=== PATIENT | female | born 1995 | race Caucasian/White ===

== ENCOUNTER 2018-04-11 13:25 | Emergency (ER) | payer BC ==
--- OUTSIDE RECORDS SUMMARY | 2018-04-11 13:33 | XMS REPORT | Continuity of Care Document ---
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 Laboratory test finding 07/01/2017 [facility] LDH 122 U/L N 84-246 134 [place] [address] [phone] Iron-Tibc-%Sat 07/01/2017 [facility] Serum Iron 62 g/dL N 50-170 134 [place] [address] [phone] Total Iron Binding Capacity 325 g/dL N 250-450 Transferrin %Saturation 19 % N 12-57 Laboratory test 07/01/2017 [facility] Factor VIII 69 % 57-163 [address] [place] [address] [phone] Ferritin 10 ng/mL N 8-252 Comprehensive Metabolic 07/01/2017 [facility] Glucose 86 mg/dL N 74-106 Panel [address] [place] [address] [phone] BUN 8 mg/dL N 7-18 Creatinine 0.7 mg/dL N 0.6-1.3 Glom Filtration Rate, Estimate >60 mL/min >60 If >60 mL/min >60 19 BUN/Creat 11.4 ratio Sodium 143 mmol/L N 136-145 Potassium 3.7 mmol/L N 3.5-5.1 Chloride 111 mmol/L High 98-107 Carbon Dioxide 26 mmol/L N 21-32 Anion Gap 6 mEq/L Low 8-16 Calcium 8.4 mg/dL Low 8.5-10.1 Total Protein 6.3 g/dL Low 6.4-8.2 Albumin 3.7 g/dL N 3.4-5.0 Globulin 2.6 g/dL N 1.9-4.3 Alb/Glob 1.4 ratio Bilirubin,Total 0.3 mg/dL N 0.2-1.0 Sgot/Ast 15 U/L N 15-37 SGPT/Alt 18 U/L N 12-78 Alkaline Phosphatase 52 U/L N 45-117 CBS W/Automated Diff 07/01/2017 [facility] White Blood 4.7 K/uL N 3.1-10.[address] Count [place], [place] [id number] [phone] Red Blood Count 4.69 M/uL N 3.90-5.40 Hemoglobin 14.1 gm/dL N 11.6-15.8 Hematocrit 41.1 % N 36.0-46.1 Mean Cell Volume 87.6 fl N 80.9-99.0 Mean Corpuscular HGB 30.1 pg N 25.9-32.7 Mean Corpuscular HGB Conc 34.3 g/dL N 30.8-34.3 Platelet Count 242 K/uL N 155-360 Red Cell Distri Width SD 40.7 fl N 3-47 Red Cell Distri Width %CV 12.9 % N 11.7-14.4 Mean Platelet Volume 9.9 fL N 8.9-12.4 Neut% 52.2 % N 40.4-72.8 Lymph % 34.3 % N 20.0-42.0 Stearns % 8.4 % N 4.3-13.2 Eo% 4.5 % N 0.0-6.6 Bas% 0.6 % N 0.0-1.1 Neut# 2.43 K/uL N 1.8-7.0 Lymph # 1.60 K/uL N 1.0-4.0 Stearns # 0.39 K/uL N 0.3-0.9 Eos # 0.21 K/uL N 0.0-0.5 Baso # 0.03 K/uL N 0.0-0.1 Anticoagulant Therapy? Unknown Xray 04/07/2017 [facility] - Radiology Ultrasound, <pending> [address] [place] [address] Transvaginal [phone] (Non-OB) Bacteria 04/06/2017 N2N/CCD Import Bacteria Very Few None Seen detection in detection in urine sediment urine sediment by light micr by light microscopy Ua RFX Micro & 04/06/2017 [facility] Urine Color YELLOW Yellow 20 Culture II [address] [place] [address] [phone] Urine Clarity CLEAR Clear Urine Glucose - Dipstick NEGATIVE mg/dL Negative Urine Bilirubin - Dipstick NEGATIVE Negative Urine Ketone NEGATIVE mg/dL Negative Urine Specific [place] 1.010 N 1.010-1.030 Urine Blood LARGE Abnormal Negative Urine PH 6.5 N 6.5-7.5 Urine Protein - Dipstick NEGATIVE mg/dL Negative Urine Urobilinogen - Dipstick 0.2 E.U./dL N 0.2-1.0 Urine Nitrite - Dipstick NEGATIVE Negative Urine Leuk Esterase NEGATIVE Negative Urine RBC 2-5 rbc/hpf 0-2 Urine WBC NONE SEEN wbc/hpf 0-7 Urine Epithelial Cells NONE SEEN /lpf None Seen Urine Bacteria VERY FEW None Seen Source: URINE, CLEAN CAT <SEE NOTE> 21 Urine HCG 04/06/2017 [facility] Urine HCG NEGATIVE Negative 22 (Qualitative) [address] [facility] (Qualitative) [place] [address] [phone] Source: URINE, CLEAN CAT <SEE NOTE> 23 WBC # Bld Auto 04/06/2017 N2N/CCD Import WBC # Bld Auto 8.6 3.1-10.7 Serum sodium 04/06/2017 N2N/CCD Import Serum sodium 144 136-145 measurement measurement Serum or plasma 04/06/2017 N2N/CCD Import Serum or plasma 9 7-18 urea nitrogen urea nitrogen measurement measurement (mass/vo (mass/volume) Serum or plasma 04/06/2017 N2N/CCD Import Serum or plasma 0.2 0.2-1.0 total bilirubin total bilirubin measurement (mass/ measurement (mass/volume) Serum or plasma 04/06/2017 N2N/CCD Import Serum or plasma 6.1 Low 6.4- 8.2 protein measurement protein (mass/volume) measurement (mass/volume) Serum or plasma 04/06/2017 N2N/CCD Import Serum or plasma 94 74-106 glucose measurement glucose (mass/volume) measurement (mass/volume) Serum or plasma 04/06/2017 N2N/CCD Import Serum or plasma 0.8 0.6-1.3 creatinine creatinine measurement measurement (mass/volum (mass/volume) Serum or plasma 04/06/2017 N2N/CCD Import Serum or plasma 8.5 8.5-10.1 calcium measurement calcium (mass/volume) measurement (mass/volume) Serum or plasma 04/06/2017 N2N/CCD Import Serum or plasma 13 Low 15-37 aspartate aspartate aminotransferase aminotransferase measure measurement (enzymatic activity/volume) Serum or plasma 04/06/2017 N2N/CCD Import Serum or plasma 66 45-117 alkaline alkaline phosphatase phosphatase measurement ( measurement (enzymatic activity/volume) Serum or plasma 04/06/2017 N2N/CCD Import Serum or plasma 3.7 3.4-5.0 albumin measurement albumin (mass/volume) measurement (mass/volume) Color Ur 04/06/2017 N2N/CCD Import Color Ur Yellow Yellow Epithelial cells 04/06/2017 N2N/CCD Import Epithelial cells None Seen None Seen detection in urine detection in urine sediment by li sediment by light microscopy Ketones Ur 04/06/2017 N2N/CCD Import Ketones Ur Negative Negative Strip.auto-mCnc Strip.auto-mCnc Leukocyte esterase 04/06/2017 N2N/CCD Import Leukocyte esterase Negative Negative Ur Ql Strip.auto Ur Ql Strip.auto Nitrite Ur Ql 04/06/2017 N2N/CCD Import Nitrite Ur Ql Negative Negative Strip.auto Strip.auto Prot Ur 04/06/2017 N2N/CCD Import Prot Ur Negative Negative Strip.auto-mCnc Strip.auto-mCnc Specific gravity of 04/06/2017 N2N/CCD Import Specific gravity 1.010 1.010-1.03 Urine by Automated of Urine by 0 test strip Automated test strip Urine appearance 04/06/2017 N2N/CCD Import Urine appearance Clear Clear determination determination Urine glucose 04/06/2017 N2N/CCD Import Urine glucose Negative Negative measurement by measurement by automated test automated test strip strip (mass/volume) Urine hemoglobin 04/06/2017 N2N/CCD Import Urine hemoglobin Large High Negative detection by detection by automated test automated test strip strip Urine human 04/06/2017 N2N/CCD Import Urine human Negative Negative chorionic chorionic gonadotropin (hCG) gonadotropin (hCG) detection detection Urine sediment 04/06/2017 N2N/CCD Import Urine sediment None Seen 0-7 leukocyte count by leukocyte count by microscopy (numb microscopy (number/high power field) Urine total 04/06/2017 N2N/CCD Import Urine total Negative Negative bilirubin detection bilirubin by automated test detection by automated test strip Urobilinogen Ur 04/06/2017 N2N/CCD Import Urobilinogen Ur 0.2 0.2-1.0 Strip-aCnc Strip-aCnc pH Ur Strip.auto 04/06/2017 N2N/CCD Import pH Ur Strip.auto 6.5 6.5-7.5 CBS W/Automated 04/06/2017 [facility] White Blood Count 8.6 K/uL N 3.1-10.7 Diff [address] [place] [address] [phone] Red Blood Count 4.45 M/uL N 3.90-5.40 Hemoglobin 13.7 gm/dL N 11.6-15.8 Hematocrit 39.2 % N 36.0-46.1 Mean Cell Volume 88.1 fl N 80.9-99.0 Mean Corpuscular HGB 30.8 pg N 25.9-32.7 Mean Corpuscular HGB Conc 34.9 g/dL High 30.8-34.3 Platelet Count 231 K/uL N 155-360 Red Cell Distri Width SD 39.5 fl N 3-47 Red Cell Distri Width %CV 12.5 % N 11.7-14.4 Mean Platelet Volume 9.7 fL N 8.9-12.4 Neut% 54.3 % N 40.4-72.8 Lymph % 33.1 % N 20.0-42.0 Stearns % 5.2 % N 4.3-13.2 Eo% 6.8 % High 0.0-6.6 Bas% 0.6 % N 0.0-1.1 Neut# 4.66 K/uL N 1.8-7.0 Lymph # 2.84 K/uL N 1.0-4.0 Stearns # 0.45 K/uL N 0.3-0.9 Eos # 0.58 K/uL High 0.0-0.5 Baso # 0.05 K/uL N 0.0-0.1 Comprehensive Metabolic 04/06/2017 [facility] Glucose 94 mg/dL N 74-[address] [place], [place] [address] [phone] BUN 9 mg/dL N 7-18 Creatinine 0.8 mg/dL N 0.6-1.3 Glom Filtration Rate, Estimate >60 mL/min >60 If >60 mL/min >60 24 BUN/Creat 11.2 ratio Sodium 144 mmol/L N 136-145 Potassium 3.5 mmol/L N 3.5-5.1 Chloride 112 mmol/L High 98-107 Carbon Dioxide 27 mmol/L N 21-32 Anion Gap 5 mEq/L Low 8-16 Calcium 8.5 mg/dL N 8.5-10.1 Total Protein 6.1 g/dL Low 6.4-8.2 Albumin 3.7 g/dL N 3.4-5.0 Globulin 2.4 g/dL N 1.9-4.3 Alb/Glob 1.5 ratio Bilirubin,Total 0.2 mg/dL N 0.2-1.0 Sgot/Ast 13 U/L Low 15-37 25 SGPT/Alt 22 U/L N 12-78 Alkaline Phosphatase 66 U/L N 45-117 Laboratory test 04/06/2017 [facility] HCG, Quant < 1.0 [address] mIU/[place] [address] [phone] Alt SerPl-cCnc 04/06/2017 N2N/CCD Import Alt SerPl-cCnc 22 12-78 Albumin/Glob 04/06/2017 N2N/CCD Import Albumin/Glob 1.5 SerPl SerPl Anion Gap 04/06/2017 N2N/CCD Import Anion Gap 5 Low 8-16 SerPl-sCnc SerPl-sCnc Automated blood 04/06/2017 N2N/CCD Import Automated blood 0.05 0.0-0.1 basophil count basophil count (count/volume) (count/volume) Automated blood 04/06/2017 N2N/CCD Import Automated blood 0.58 High 0.0- 0.5 eosinophil eosinophil count count Automated blood 04/06/2017 N2N/CCD Import Automated blood 39.2 36.0- 46.1 hematocrit hematocrit (volume (volume fraction) fraction) Automated blood 04/06/2017 N2N/CCD Import Automated blood 2.84 1.0-4.0 lymphocyte lymphocyte count count (number/volume) (number/volume) Automated blood 04/06/2017 N2N/CCD Import Automated blood 231 155-360 platelet count platelet count Automated blood 04/06/2017 N2N/CCD Import Automated blood 9.7 8.9-12.4 platelet mean platelet mean volume volume measurement measurement Automated 04/06/2017 N2N/CCD Import Automated 30.8 25.9-32.7 erythrocyte erythrocyte mean mean corpuscular corpuscular hemoglobin hemoglobin (mass per erythrocyte) Automated 04/06/2017 N2N/CCD Import Automated 34.9 High 30.8-34.3 erythrocyte erythrocyte mean mean corpuscular corpuscular hemoglobin hemoglobin concentration measurement (mass/volume) Automated 04/06/2017 N2N/CCD Import Automated 88.1 80.9-99.0 erythrocyte erythrocyte mean mean corpuscular corpuscular volume volume RDW RBC 04/06/2017 N2N/CCD Import RDW RBC 12.5 11.7-14.4 Auto-Rto Auto-Rto Serum carbon 04/06/2017 N2N/CCD Import Serum carbon 27 21-32 dioxide dioxide measurement measurement RDW RBC Auto 04/06/2017 N2N/CCD Import RDW RBC Auto 39.5 3-47 Potassium 04/06/2017 N2N/CCD Import Potassium 3.5 3.5-5.1 SerPl-sCnc SerPl-sCnc Neutrophils/hoang 04/06/2017 N2N/CCD Import Neutrophils/hoang 54.3 40.4- 72.8 k NFr Bld Auto k NFr Bld Auto Neutrophils # 04/06/2017 N2N/CCD Import Neutrophils # 4.66 1.8-7.0 Bld Auto Bld Auto Monocytes/leuk 04/06/2017 N2N/CCD Import Monocytes/leuk 5.2 4.3-13.2 NFr Bld Auto NFr Bld Auto Lymphocytes/hoang 04/06/2017 N2N/CCD Import Lymphocytes/hoang 33.1 20.0- 42.0 k NFr Bld Auto k NFr Bld Auto Globulin Ser 04/06/2017 N2N/CCD Import Globulin Ser 2.4 1.9-4.3 Calc-mCnc Calc-mCnc Eosinophil/leuk 04/06/2017 N2N/CCD Import Eosinophil/leuk 6.8 High 0.0- 6.6 NFr Bld Auto NFr Bld Auto Chloride 04/06/2017 N2N/CCD Import Chloride 112 High 98-107 SerPl-sCnc SerPl-sCnc Blood monocytes 04/06/2017 N2N/CCD Import Blood monocytes 0.45 0.3-0.9 automated count automated count (number/volume) (number/volume) Blood 04/06/2017 N2N/CCD Import Blood 13.7 11.6-15.8 hemoglobin hemoglobin measurement measurement (mass/volume) (mass/volume) Blood 04/06/2017 N2N/CCD Import Blood 4.45 3.90-5.40 erythrocytes erythrocytes automated count automated count (number/volume) (number/volume) Basophils/leuk 04/06/2017 N2N/CCD Import Basophils/leuk 0.6 0.0-1.1 NFr Bld Auto NFr Bld Auto BUN/Creat SerPl 04/06/2017 N2N/CCD Import BUN/Creat SerPl 11.2 Laboratory test 03/27/2015 [facility] Urine HCG NEGATIVE Negative [address] (Qualitative) [place] [address] [phone] GC/CT 08/02/2014 [facility] (DO Not Use) Chlamydia NEGATIVE 28 GC NEGATIVE Laboratory test 08/02/2014 [facility] (DO Not Use) Cytology Pap See Note N 29 finding Comp Metabolic Panel 12/16/2013 N2N/CCD Import Albumin 4.3 g/dL 3.2-5.2 Albumin/Globulin Ratio 2.3 1-3 Alkaline Phosphatase 37 U/L 34-104 Alt 7 U/L 7-52 Anion Gap 4 mmol/L 2-11 Ast 13 U/L 13-39 BUN/Creatinine Ratio 10.7 8-20 Blood Urea Nitrogen 9 mg/dL 6-24 Calcium 9.5 mg/dL 8.6-10.3 Chloride 106 mmol/L 101-111 Co2 Carbon Dioxide 28 mmol/L 22-32 Creatinine 0.84 mg/dL 0.51-0.95 Egfr 111.2 >60 30 Egfr Non- 86.4 >60 Globulin 1.9 g/dL Low 2-4 Glucose 89 mg/dL 70-100 Potassium 4.0 mmol/L 3.7-5.6 Sodium 138 mmol/L 133-145 Total Bilirubin 0.40 mg/dL 0.2-1.0 Total Protein 6.2 g/dL Low 6.4-8.9 Urine Culture And 12/16/2013 N2N/CCD Import Urine Culture (See Note) 31 Sensitivities CBC Auto Diff 12/16/2013 N2N/CCD Import Abs Basophils 0.1 10^3/uL 0-0.2 Abs Eosinophils 0.5 10^3/uL 0-0.6 Abs Lymphocytes 3.3 10^3/uL 1.0-4.8 Abs Monocytes 0.5 10^3/uL 0-0.8 Abs Neutrophils 5.4 10^3/uL 1.5-7.7 Abs Nucleated RBC 0.01 10^3/uL Basophil % 0.7 % 0-2 Eosinophil % 5.3 % 0-6 Granulocyte % 55.5 % 38-83 Hematocrit 38 % 35-47 Hemoglobin 13.3 g/dL 12.0-16.0 Lymphocyte % 33.9 % 25-47 Mean Corpuscular HGB Conc 35 g/dL 31-36 Mean Corpuscular Hemoglobin 30 pg 27-31 Mean Corpuscular Volume 86 fL 80-97 Mean Platelet Volume 8 um3 7.4-10.4 Monocyte % 4.6 % 1-9 Nucleated Red Blood Cells % 0.1 Platelet Count 214 10^3/uL 150-450 Red Blood Count 4.48 10^6/uL 4.0-5.4 Red Cell Distribution Width 14 % 10.5-15 White Blood Count 9.8 10^3/uL 4.8-10.8 Laboratory test 12/16/2013 N2N/CCD Import Lipase 6 U/L Low 11.0-82.0 finding Laboratory test 12/12/2013 N2N/CCD Import C-Reactive < 2.9 mg/L <3.0 finding Protein,Quant Sedimentation Rate 1 mm/hr 0-20 CBC W/Automated Diff 12/12/2013 N2N/CCD Import Bas% 0.7 % 0.0-1.1 Baso # 0.06 K/uL 0.0-0.1 Eo% 10.8 % High 0.0-6.6 Eos # 0.87 K/uL High 0.0-0.5 Hematocrit 41.0 % 36.0-46.1 Hemoglobin 14.1 gm/dL 11.6-15.8 Lymph # 2.74 K/uL 0.8-3.4 Lymph % 33.9 % 17.0-46.1 Mean Cell Volume 87.0 fl 80.9-99.0 Mean Corpuscular HGB 29.9 pg 25.9-32.7 Mean Corpuscular HGB Conc 34.4 g/dL High 30.8-34.3 Mean Platelet Volume 9.7 fL 8.9-12.4 Stearns # 0.53 K/uL 0.0-0.6 Stearns % 6.6 % 4.3-13.2 Neut# 3.88 K/uL 1.0-7.0 Neut% 48.0 % 28.0-68.0 Platelet Count 235 K/uL 155-360 Red Blood Count 4.71 M/uL 3.90-5.40 Red Cell Distri Width %CV 13.8 % 11.7-14.4 Red Cell Distri Width SD 43.2 fl 3-47 White Blood Count 8.1 K/uL 3.1-10.7 1 HIGH BP 184/110, TIRED, DESAI 2 FIRST MORNING SPECIMENS GENERALLY CONTAIN THE HIGHEST CONCENTRATION OF HCG AND ARE RECOMMENDED FOR EARLY DETECTION OF . Method: Quidel QuickVue One-Step Immunoassay 3 URINE, CLEAN CATCH 4 URINE, CLEAN CATCH 5 URINE SPECIMENS ARE SCREENED AT THE LISTED CUTOFFS DRUG CLASS INITIAL TEST LEVEL Amphetamines 1000 ng/mL Barbiturates 200 ng/mL Benzodiazepines 200 ng/mL Cannabinoids 50 ng/mL Cocaine Metabolite 300 ng/mL Methadone 300 ng/mL Opiates 300 ng/mL Any PRESUMPTIVE POSITIVE findings are UNCONFIRMED. Confirmatory testing is suggested if findings are unexpected. Please contact laboratory if confirmatory testing is desired. SPECIMENS ARE HELD FOR 72 HOURS. 6 Note: Persistent reduction for 3 months or more in an eGFR <60 mL/min/1.73 m2 defines CKD. Patients with eGFR values >/=60 mL/min/1.73 m2 may also have CKD if evidence of persistent proteinuria is present. The original MDRD equation for estimated GFR is not valid for patients less than 18 years of age. Additional information may be found at www.kdoqi.org. 7 Values below the stated reference ranges of AST and ALT can be seen in normal populations. Clinical correlation is suggested. 8 D69.1 9 D64.9 10 Prolonged ADP closure pattern suggesting impairment of primary hemostasis (typically platelets or vWF). A prolonged closure time can also be seen when the patient has a hematocrit <35% and/or a platelet count <150,000 k/ul. Testing Performed By: [facility], [place] [address] 11 FAX [phone] [id number] Stability Limit Exceeded When Received 13 Stability Limit Exceeded When Received 14 Stability Limit Exceeded When Received 15 D64.9 16 Performed at: [facility] [address] [id number] Hide Puller: Edi Salcedo MD, Phone: [phone] 17 THERAPEUTIC INR RANGE: 2.0 - 3.0 DVT, Pulmonary embolus, prophylaxis against venous thrombosis or systemic embolization in high risk patients. 2.5 - 3.5 Mechanical heart valves 18 Performed at: [facility] [address] [id number] Hide Puller: Edi Salcedo MD, Phone: [phone] 19 Note: Persistent reduction for 3 months or more in an eGFR <60 mL/min/1.73 m2 defines CKD. Patients with eGFR values >/=60 mL/min/1.73 m2 may also have CKD if evidence of persistent proteinuria is present. The original MDRD equation for estimated GFR is not valid for patients less than 18 years of age. Additional information may be found at www.kdoqi.org. 20 VAGINAL BLEEDING 21 URINE, CLEAN CATCH 22 FIRST MORNING SPECIMENS GENERALLY CONTAIN THE HIGHEST CONCENTRATION OF HCG AND ARE RECOMMENDED FOR EARLY DETECTION OF . Method: Quidel QuickVue One-Step Immunoassay 23 URINE, CLEAN CATCH 24 Note: Persistent reduction for 3 months or more in an eGFR <60 mL/min/1.73 m2 defines CKD. Patients with eGFR values >/=60 mL/min/1.73 m2 may also have CKD if evidence of persistent proteinuria is present. The original MDRD equation for estimated GFR is not valid for patients less than 18 years of age. Additional information may be found at www.kdoqi.org. 25 Values below the stated reference ranges of AST and ALT can be seen in normal populations. Clinical correlation is suggested. 26 Approximate Gestational Age and Total BHCG Range: 0.2 - 1 Week........................5-50 mIU/mL 1 - 2 Weeks.....................50-500 mIU/mL 2 - 3 Weeks..................100-5,000 mIU/mL 3 - 4 Weeks.................500-10,000 mIU/mL 4 - 5 Weeks...............1,000-50,000 mIU/mL 5 - 6 Weeks.............10,000-100,000 mIU/mL 6 - 8 Weeks.............15,000-200,000 mIU/mL 2 - 3 Months............10,000-100,000 mIU/mL 27 FIRST MORNING SPECIMENS GENERALLY CONTAIN THE HIGHEST CONCENTRATION OF HCG AND ARE RECOMMENDED FOR EARLY DETECTION OF . 28 Special Testing Laboratory [address] [place] [address], [facility] [address] [place] [address] STI REPORT Name: Laura Velásquez : 1995 (Age: 19) Sex: F Location: [facility] Requisition #: [id number] Date Collected: 08/02/2014 Billing #: [id number] Date Received: 08/03/2014 Physician(s ): URBAN RIVERA [facility] Specimen(s) Received: ThinPrep, APTIMA Date Ordered: 08/03/2014 Status: Signed Out Date Reported: 08/04/2014 Chlamydia trachomatis NEGATIVE Electronic Signature Maryam Moe [facility] Date Ordered: 08/03/2014 Status: Signed Out Date Reported: 08/04/2014 Neisseria gonorrhoeae NEGATIVE Electronic Signature Maryam Moe [facility] ICD-9 Codes: V76.2 29 Interpretation: NEGATIVE FOR INTRAEPITHELIAL LESION OR MALIGNANCY. Specimen Adequacy: SATISFACTORY FOR EVALUATION. Additional Findings: ENDOCERVICAL/TRANSFORMATION ZONE PRESENT. Cytology Laboratory [address] [facility], [address] [place] [id number] CYTOLOGY REPORT Name: Laura Velásquez : 1995 (Age: 19) Sex: F Location: [facility] Med. Rec. # [id number] Date Collected: 08/02/2014 Billing #: [id number] Date Received: 08/03/2014 Requisition # [id number] Physician(s): URBAN MARLEY Source of Specimen: ENDOCERVICAL/ECTOCERVICAL THIN PREP Clinical Information: Date of Last Menstrual Period: 07/10/14 kfs Electronic Signature CHENCHO Davis (ASCP) Reported: 08/08/2014 [facility] ICD-9 Code(s) V76.2 30 Because ethnic data is not always readily available, this report includes an eGFR for both -Americans and non- Americans. The National Kidney Disease Education Program (NKDEP) does not endorse the use of the MDRD equation for patients that are not between the ages of 18 and 70, are , have extremes of body size, muscle mass, or nutritional status, or are non- or non-. According to the National Kidney Foundation, irrespective of diagnosis, the stage of the disease is based on the level of kidney function: Stage Description GFR(mL/min/1.73 m(2)) 1 Kidney damage with normal or decreased GFR 90 2 Kidney damage with mild decrease in GFR 60- 89 3 Moderate decrease in GFR 30-59 4 Severe decrease in GFR 15-29 5 Kidney failure <15 (or dialysis) 31 RUN DATE: 12/19/13 [facility] LIVE PAGE 1 RUN TIME: [address] [place] [address] Specimen Inquiry ----- Name: LAURA VELÁSQUEZ : [address]: Ochoa Singleton MD Acct: [id number] Unit: [id number] AGE: 18 Location: [facility] Re12/16/13 SEX: F Status: DEP ER ----- SPEC: [id number] JANUARY: 12/16/[address]: Ochoa Singleton MD REQ: [id number] RECD: 12/17/13 STATUS: RAFA ROCA DR: Angela Williamson MD [facility] _ SOURCE: URINE SPDESC: ORDERED: Urine Culture ----- Procedure Result Verified Site ----- Urine Culture Final 12/19/13-0845 ML Organism 1 NORMAL SCOOTER [place] Count 75-100,000 (Many) CFU/ML ----- END OF REPORT * ML=Testing performed at Main Lab DEPARTMENT OF PATHOLOGY, [address] [place] [address] Ed Rodriguez M.D. Director [facility] # [id number] Procedures Date Code Description Status 01/02/2016 81680 EKG Interpretation And Report Only Completed 01/04/2014 26843 EKG-Tracing And Report Completed 06/25/2012 40183 Echocardiogram Complete Completed 06/15/2012 76479 EKG-Tracing And Report Completed 07/17/2011 98299 Anesthesia, Intraoral Surgery Not Otherwise Spec Completed 11/07/2010 70394 Anesthesia, Tympanotomy Completed Encounters Type Date Location Provider Dx Diagnosis Office Visit 02/01/2018 Primary Care Miguel, I10 Essential (primary) 10:30a Office STUART Trimble hypertension Office Visit 07/24/2017 Oncology Office Ben, 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 D64.9 Anemia, unspecified N92.0 Excessive and frequent menstruation with regular cycle Office Visit 07/01/2017 9:00a Oncology Office Ben D64.9 Anemia, Abad, DO unspecified N92.0 Excessive and frequent menstruation with regular cycle 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 Office Visit 12/11/2016 10:00a Primary Care Miguel, M62.830 Muscle spasm of Office [facility] Visit 08/26/2016 11:30a Primary Care Miguel J01.90 Acute sinusitis, Office [facility] unspecified R05 Cough R41.840 Attention and concentration deficit Office Visit 08/05/2016 1:00p Primary Care Miguel Z00.01 Encounter for Office [facility] general adult medical exam w abnormal findings R41.840 Attention and concentration deficit K59.00 Constipation, unspecified F43.10 Post-traumatic stress disorder, unspecified F33.8 Other recurrent depressive disorders Office Visit 04/10/2015 9:45a Primary Care Miguel, J01.90 Acute sinusitis, Office [facility] unspecified H10.9 Unspecified conjunctivitis Office Visit 08/02/2014 2:00p Family [place], 309.81 Posttraumatic Medicine [facility] Stress Disorder RD V72.31 Routine Sat Instructor Examination V76.2 Screening Malignant Neoplasm Cervix 309.81 Posttraumatic Stress Disorder Office Visit 01/04/2014 3:40p Cardiology Office Arun Estevez 780.2 Syncope & M., M.D., FACC Collapse 786.50 Pain Chest Unspec 786.05 Shortness Of Breath Office Visit 06/07/2013 Cardiology Office Josy Smith 780.2 Syncope & Collapse 3:40p Andria MSN, ANAESTHETIC TECHNICIAN Office Visit 04/15/2013 Orthopaedic Janice Ventura 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 Office S., RPAC Patella 719.46 Pain Joint Lower Leg Office Visit 03/11/2013 Orthopaedic Audrey 717.7 Chondromalacia Of 8:15a Office Janice S., Patella RPAC 719.46 Pain Joint Lower Leg Office Visit 12/08/2012 3:40p Cardiology Office Arun Estevez 780.2 Syncope & M., M.D., FACC Collapse Office Visit 08/24/2012 3:40p Cardiology Office Josy Smith 780.2 Syncope & Andria, MSN, Collapse ANAESTHETIC TECHNICIAN 786.50 Pain Chest Unspec Office Visit 08/03/2012 3:30p Cardiology Office Arun Estevez 780.2 Syncope & M., M.D., FACC Collapse 786.50 Pain Chest Unspec Office Visit 07/20/2012 3:30p Cardiology Office Josy Smith 780.2 Syncope & Andria, MSN, Collapse ANAESTHETIC TECHNICIAN Office Visit 06/15/2012 2:40p Cardiology Office Arun Estevez 780.2 Syncope & M., M.D., FACC Collapse 786.50 Pain Chest Unspec 794.31 Electrocardiogram (ECG) (EKG) Abnormal Plan of Treatment 03/12/2018 - [place], [place], [id number] Essential (primary) hypertensionComments :Current medication(s): Verapamil ER 120mg dailyFollow up:6 months.G43.009 Migraine without aura, not intractable, without status migrainosusComments: Often associated with menses. Hx of complicated migraine with visual disturbances 01/2016, has not recurred
--- OUTSIDE RECORDS SUMMARY | 2018-04-11 13:33 | XMS REPORT | Continuity of Care Document ---
:1995 External Reference #:[id number] Author Name Cally Flores Care Team Providers Name Role Phone Nai Rivera RPA Primary Care Physician Unavailable Payers Type Date Identification Numbers Payment Provider Subscriber Policy Number: [id number] BS Phil Velásquez PayID: [id number] [address] [address] ALEIDA Hernandez [address] Expires: 2018 Policy Number: [id number] Ltey Velásquez Group Number: [id number] [address] PayID: [id number] [place] [address] Advance Directives Description No Information Available Problems Date Description Provider Status Onset: 04/09/2016 Complicated migraine Mallory Marlow M.D. 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 Active without status migrainosus Family History Date Family Member(s) Problem(s) Comments General Stroke General Diabetes Mother No Current Problems Grandfather Stroke Paternal Grandfather Diabetes Social History Type Date Description Comments Sex Unknown Occupation Teacher Tobacco Use Start: Unknown End: Former Cigarette Smoker 1/2 Unknown Pack Daily Smoking Status Reviewed: 03/31/18 Former Cigarette Smoker 1/2 Pack Daily ETOH Use Occasionally consumes alcohol Tobacco Use Start: Unknown End: Patient is a former smoker Unknown Smoking was a very light smoker. Exercise Type/Frequency Exercises regularly Exercise Type/Frequency Used to do cardiac rehab 3 times a week Allergies, Adverse Reactions, Alerts Date Description Reaction Status Severity Comments 04/09/2016 NKDA Active 04/09/2016 Sensitivity To Narcotics Active Medications Medication Date Status Form Strength Qnty SIG Indications Ordering Provider Topiramate 03/31/ Active Tablets 25mg 60tabs 1 by G43.809 Ander 2019 mouth Larry Lam twice a day Verapamil HCL / Active Tablets ER 120mg 1 by Unknown ER 0000 mouth every day Verapamil HCL 02/09/ Hx Tablets 40mg 45tabs Take 2 G43.809 Mallory Stephens 2016 - Tablet Stackman, 03/30/ By Mouth M.D. 2018 Three Times A Day-take s 1 tab in A.M. and 1/2 tab in P.M. Verapamil HCL 08/08/ Hx Tablets 40mg 45tabs 1/2 tab G43.809 Mallory Stephens 2016 - by mouth Stackman, 02/09/ 3x/day M.D. 2016 Norethindrone / Hx Tablets 0.35mg Take One Unknown 0000 - Tablet 06/16/ By Mouth 2018 Every Day Trazodone HCL / Hx Tablets 100mg Take 1 Unknown 0000 - To 1 & 03/24 Tablets By Mouth AT Bedtime prn Docusate Sodium / Hx Capsules 100mg 3 by Unknown 0000 - mouth 03/30/ daily 2019 Buspirone HCL / Hx Tablets 5mg 60tabs 2 by Unknown 0000 - mouth in 03/30/ am and 2018 po at hs. Bupropion HCL / Hx Tablets ER 300mg 1 by Unknown ER (XL) 0000 - 24HR mouth 03/30/ 2018 day Immunizations Description No Information Available Vital Signs Date Vital Result Comment 03/31/2018 8:58am Height 66 inches 5'6" Weight 169.00 lb Heart Rate 66 /min BP Systolic Sitting 116 mmHg BP Diastolic Sitting 92 mmHg Respiratory Rate 16 /min Pain Level 0 O2 % BldC Oximetry 98 % BMI (Body Mass Index) 27.3 kg/m2 02/09/2017 11:13am Height 66 inches 5'6" Weight 156.00 lb Heart Rate 60 /min BP Systolic Sitting 116 mmHg BP Diastolic Sitting 66 mmHg Respiratory Rate 16 /min Pain Level 1 O2 % BldC Oximetry 99 % Ra BMI (Body Mass Index) 25.2 kg/m2 08/08/2016 3:54pm Height 66 inches 5'6" BP Systolic 72 mmHg BP Systolic Sitting 132 mmHg BP Diastolic Sitting 80 mmHg Respiratory Rate 16 /min Pain Level 0 O2 % BldC Oximetry 98 % 04/09/2016 10:59am Height 66 inches 5'6" Weight 156.00 lb Heart Rate 76 /min BP Systolic Sitting 124 mmHg BP Diastolic Sitting 80 mmHg Respiratory Rate 16 /min BMI (Body Mass Index) 25.2 kg/m2 Results Description No Information Available Procedures Description No Information Available Encounters Type Date Location Provider Dx Diagnosis Office Visit 02/09/2017 [place]/Jessica Stephens G43.809 Other migraine, 11:15a Neurologic Serv Of Larry Marlow not intractable, 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 at [facility] Neurologic [facility] Of [facility]03/31/2018 - Ander Lam M.D.G43.809 Other migraine, not intractable, without status migrainosusNew Medication:Topiramate 25 mg - 1 by mouth twice a dayNew Labs: (HCG) Urine, Ordered: Basic Metabolic Panel, Ordered: 03/31/18Follow up:Follow up in 4 monthsRecommendations:Call me in 2 months if no better and we will increase the dose Drink plenty of water Keep a headache calendar Call me 1 week after the angiogram to review the [id number] Other malformations of precerebral vesselsNew Xrays:Cta Head [id number] & Neck 33341 W/Contrast, Ordered: 03/31/18
[2018-04-11 13:40] VITALS: BP 136/77
--- NOTE | 2018-04-11 13:46 | UC ---
General HPI - HPI Summary HPI Summary: ROUSED WITH RED EYES AND DRAINAGE. BEGAN ON R AND NOW BOTH. NO PAIN. NO CONTACT USE. - History of Current Complaint Chief Complaint: UCEye Stated Complaint: BI LAT EYE CONCERN Time Seen by Provider: 04/11/18 13:32 Hx Obtained From: Patient Hx Last Menstrual Period: 03/10/18 Onset/Duration: Gradual Onset Timing: Constant Pain Intensity: 0 Associated Signs & Symptoms: Negative: Fever, Headache - Allergy/Home Medications Allergies/Adverse Reactions: Allergies Allergy/AdvReac Type Severity Reaction Status Date / Time cats, dogs Allergy Difficulty Uncoded 04/11/18 13:33 Breathing narcotics Allergy Vomiting Uncoded 04/11/18 13:33 Home Medications: Home Medications Fexofenadine (NF) [Huyen 180 (NF)] 180 mg PO DAILY 04/11/18 [History Confirmed 04/11/18] Verapamil TAB* [Calan TAB*] 120 mg PO BID 04/11/18 [History Confirmed 04/11/18] PMH/Surg Hx/FS Hx/Imm Hx Cardiovascular History: Hypertension Neurological History: Migraine - Surgical History Surgical History: Yes Surgery Procedure, Year, and Place: ear tubes, T & A - Family History Known Family History: Positive: Other - grandfather with a stroke at age 19 - Social History Occupation: Employed Full-time Alcohol Use: Occasionally Substance Use Type: None Smoking Status (MU): Former Smoker Review of Systems All Other Systems Reviewed And Are Negative: Yes Constitutional: Positive: Negative Skin: Positive: Negative Eyes: Positive: Drainage, Eye Redness. Negative: Blurred Vision, Diplopia, Photophobia ENT: Positive: Negative Respiratory: Positive: Negative Cardiovascular: Positive: Negative Gastrointestinal: Positive: Negative Genitourinary: Positive: Negative Motor: Positive: Negative Neurovascular: Positive: Negative Musculoskeletal: Positive: Negative Neurological: Positive: Negative Psychological: Positive: Negative Physical Exam Triage Information Reviewed: Yes Appearance: Well-Appearing Vital Signs: Initial Vital Signs Temp 97.8 F 04/11/18 13:33 Pulse 72 04/11/18 13:33 Resp 14 04/11/18 13:33 BP 136/77 04/11/18 13:33 Pulse Ox 99 04/11/18 13:33 Vital Signs Reviewed: Yes Eyes: Positive: Other: - NO AURICULAR ADENOPATHY OR PERIORBITAL EDEMA/RASH. CONJUNCTIVA INJECTED WITH CRUSTING. AC'S CLEAR. PERRL, EOMI. ENT: Positive: Pharynx normal, TMs normal. Negative: Nasal congestion, Nasal drainage Neck: Positive: Supple, Nontender, No Lymphadenopathy Respiratory: Positive: Lungs clear, Normal breath sounds Cardiovascular: Positive: RRR, No Murmur Abdomen Description: Positive: Nontender, No Organomegaly, Soft Bowel Sounds: Positive: Present Musculoskeletal: Positive: ROM Intact Neurological: Positive: Alert Psychological: Positive: Age Appropriate Behavior Skin Exam: Normal Skin: Negative: Rashes Course/Dx - Diagnoses Provider Diagnosis: Conjunctivitis Discharge - Sign-Out/Discharge Documenting (check all that apply): Patient Departure All imaging exams completed and their final reports reviewed: No Studies - Discharge Plan Condition: Stable Disposition: HOME Prescriptions: Polymyx/Trimethoprim OPTH* [Polytrim OPHTH*] 1 drop BOTH EYES Q3H 7 Days #1 btl Patient Education Materials: Conjunctivitis (ED) Forms: *Work Release Referrals: Nai Rivera PA [Primary Care Provider] - 7 Days - Billing Disposition and Condition Condition: STABLE Disposition: Home
== END 2018-04-11 13:51 | disposition home or self-care (01) ==
LOC: UCCORT 13:25
DX: H10.9 Unspecified conjunctivitis (principal); I10 Essential (primary) hypertension; Z91.09 Other allergy status, other than to drugs and biological substances; Z88.5 Allergy status to narcotic agent; Z79.899 Other long term (current) drug therapy; Z87.891 Personal history of nicotine dependence
CPT/HCPCS: 99212; G0463

== ENCOUNTER 2018-11-01 09:36 | Emergency (ER) | payer BC ==
--- OUTSIDE RECORDS SUMMARY | 2018-11-01 09:48 | XMS REPORT | Continuity of Care Document ---
:1995 External Reference #:[id number] Author Name Bronsonkandiceginger Tamika Care Team Providers Name Role Phone Nai Rivera RPA Primary Care Physician Unavailable Payers Date Identification Numbers Payment Provider Subscriber Policy Number: [id number] BS Facets Laura Velásquez PayID: [id number] [address] [address] ALEIDA Hernandez [address] Expires: 2018 Policy Number: [id number] Lety Velásquez Group Number: [id number] [address] PayID: [id number] [place] [address] Problems Active Problems Provider Date Complicated migraine Mallory Marlow M.D. Onset: 04/09/2016 Other migraine, not intractable, without Ander Lam M.D. Onset: 2018 status migrainosus Other malformations of precerebral vessels Ander Lam M.D. Onset: 11/2018 Labile blood pressure ALLYSSA Christopher Onset: 09/14/2018 Alcoholism ALLYSSA Christopher Onset: 09/14/2018 Major depressive disorder ALLYSSA Christopher Onset: 09/14/2018 Incomplete right bundle branch block ALLYSSA Christopher Onset: 09/14/2018 Family History Date Family Member(s) Observation Comments Mother No Current Problems Social History Type Date Description Comments Sex Unknown Occupation Works at [employer], [employer] Tobacco Use Start: Unknown End: Former Cigarette Smoker Unknown 1/2 Pack Daily Smoking Status Reviewed: 10/05/18 Former Cigarette Smoker 1/2 Pack Daily ETOH Use Currently consumes Has been in alcohol counseling for alcoholism Tobacco Use Start: Unknown End: Patient is a former Unknown smoker Smoking was a very light smoker. Exercise Exercises sporadically Type/Frequency Allergies, Adverse Reactions, Alerts Active Allergies Reaction Severity Comments Date Sensitivity To Narcotics Nausea and Vomiting 04/09/2016 Medications Active Medications SIG Qnty Indications Ordering Date Provider Katina 1 tab by mouth 84tabs N94.10 Erasto 10/05/2018 0.35mg Tablets every day MD Ben Bupropion 1 by mouth every 30tabs F33.1 Erasto 09/14/2018 Hydrochloride ER (XL) day MD Ben 150mg Tablets ER 24HR Buspirone HCL take 1/2 to 1 90tabs F33.1 Erasto 09/14/2018 7.5mg tablet three MD Ben Tablets times a day as needed Trazodone HCL 1 tab by mouth at 60tabs G47.00 Erasto 09/14/2018 50mg bedtime,july MD Ben Tablets increase to 2 tabs for ongoing insomnia History Medications No Active Medications Unknown 09/14/2018 - 09/14/2018 Topiramate 1 by mouth 60tabs G43.809 Ander Lam, 03/31/2018 - 25mg Tablets twice a day M.D. 09/14/2018 Verapamil HCL Take 1/2 Tablet 45tabs G43.809 Mallory Marlow, 02/09/2017 - 40mg By Mouth Three M.D. 03/30/2018 Tablets Times A Day-takes 1 tab in A.M. and 1/2 tab in P.M. Verapamil HCL 1/2 tab by 45tabs G43.809 Mallory Marlow, 08/08/2016 - 40mg mouth 3x/day M.D. 02/09/2017 Tablets Norethindrone Take One Tablet Unknown - 0.35mg By Mouth Every 06/16/2017 Tablets Day Trazodone HCL Take 1 To 1 & Unknown - 100mg 1/2 Tablets By 03/30/2018 Tablets Mouth AT Bedtime prn Docusate Sodium 3 by mouth Unknown - 100mg daily 03/30/2018 Capsules Buspirone HCL 2 by mouth in 60tabs Unknown - 5mg am and 1 po at 03/30/2018 Tablets hs. Bupropion HCL ER (XL) 1 by mouth Unknown - every day 03/30/2018 300mg Tablets ER 24HR Verapamil HCL ER 1 by mouth Unknown - 120mg every day 09/14/2018 Tablets ER Vital Signs Date Vital Result Comment 10/05/2018 12:01pm Height 67.5 inches 5'7.50" Weight 170.25 lb Heart Rate 62 /min BP Systolic Sitting 134 mmHg BP Diastolic Sitting 82 mmHg O2 % BldC Oximetry 93 % BMI (Body Mass Index) 26.3 kg/m2 09/14/2018 9:43am Height 67.5 inches 5'7.50" Weight 170.38 lb Heart Rate 66 /min BP Systolic Sitting 112 mmHg BP Diastolic Sitting 70 mmHg O2 % BldC Oximetry 98 % BMI (Body Mass Index) 26.3 kg/m2 03/31/2018 8:58am Height 66 inches 5'6" Weight [...] BMI (Body Mass Index) 25.2 kg/m2 Results Test Date Facility Test Result H/L Range Note Laboratory test 08/30/2018 [facility] HCG < 0.60 [address] mIU/[place] [address] [phone] Laboratory test 04/06/2018 [facility] (HCG) <pending> finding [address] [place] [address] [phone] Basic Metabolic 04/06/2018 [facility] Sodium 138 mmol/L N 135- [address] [place] [address] [phone] Potassium 4.0 mmol/L N 3.5-5.0 Chloride 110 mmol/L N 101-111 Co2 Carbon Dioxide 23 mmol/L N 22-32 Anion Gap 5 mmol/L N 2-11 Glucose 98 mg/dL N 70-100 Blood Urea Nitrogen 13 mg/dL N 6-24 Creatinine 0.84 mg/dL N 0.51-0.95 BUN/Creatinine Ratio 15.5 N 8-20 Calcium 9.5 mg/dL N 8.6-10.3 Egfr Non- 82.6 >60 Egfr 100.0 >60 2 1 <5.0 Negative 5.0 - 25.0 Indeterminate (Repeat testing recommended after 72 hours) >25.0 Positive Perimenopausal women can display HCG levels of up to 20 mIU/mL 2 Because ethnic data is not always readily [...] Kidney damage with mild decrease in GFR 60-89 3 Moderate decrease in GFR 30-59 4 Severe decrease in GFR 15-29 5 Kidney failure <15 (or dialysis) Encounters Type Date Location Provider Dx Diagnosis Office Visit 09/14/2018 [facility] Primary [facility] Nai Rivera, F33.1 Major depressive 9:30a PA disorder, recurrent, moderate G47.00 Insomnia, unspecified F10.20 Alcohol dependence, uncomplicated Office 03/31/2018 Jessica Worthington G43.809 Other migraine, Visit 8:45a Neurologic Serv Of Larry Lam not intractable, Material Ch[employer] without status migrainosus 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 at [facility] Neurologic Serv [facility]10/05/2018 - Nai Rivera, PAF33.1 Major depressive disorder, recurrent, moderateComments:Discontinue BupropionFollow up:6 wksN94.10 Unspecified dyspareuniaNew Medication:Katina 0.35 mg - 1 tab by mouth every dayNew Labs:Ctrach&Ngonorr Amplified Rna, Ordered: 10/05/18
--- NOTE | 2018-11-01 10:16 | UC ---
Abdominal Pain Female HPI - HPI Summary HPI Summary: 23 yo female with left flank pain x 5 days fever x 3-4 days T max>102.5 chills dry heaves no vomiting increased freq urination no vag d/c or itch - History of Current Complaint Chief Complaint: UCGeneralIllness Stated Complaint: LEFT SIDE PAIN, FEVER Time Seen by Provider: 11/01/18 09:47 Hx Obtained From: Patient Hx Last Menstrual Period: 10/30/18 Onset/Duration: Gradual Onset Timing: Constant Severity Initially: Moderate Pain Intensity: 6 Pain Scale Used: 0-10 Numeric Location: Other - left flank Radiates: No Character: Aching, Sharp Aggravating Factor(s): Movement, Deep Breaths Alleviating Factor(s): Nothing Associated Signs and Symptoms: Positive: Diaphoresis, Fever, Urinary Symptoms - increase freq, Nausea. Negative: Diarrhea Allergies/Adverse Reactions: Allergies Allergy/AdvReac Type Severity Reaction Status Date / Time cats, dogs Allergy Difficulty Uncoded 11/01/18 09:56 Breathing narcotics Allergy Vomiting Uncoded 11/01/18 09:56 Home Medications: Home Medications busPIRone TAB* [Buspar TAB *] 7.5 mg PO DAILY 11/01/18 [History Confirmed ] traZODone TAB* [Desyrel TAB*] 50 mg PO DAILY 11/01/18 [History Confirmed ] PMH/Surg Hx/FS Hx/Imm Hx - Additional Past Medical History Additional PMH: 23 yo female with left flank pain x 5 days fever x 3 days with T max 102.8 increased freq of urination no vaginal discharge or itching nausea and diaphoresis no vomiting or diarrhea Previously Healthy: Yes Cardiovascular History: Hypertension - Surgical History Surgical History: Yes Surgery Procedure, Year, and Place: ear tubes, T & A, sinus - Family History Known Family History: Positive: Other - grandfather with a stroke at age 19 - Social History Alcohol Use: Occasionally Substance Use Type: None Smoking Status (MU): Former Smoker Have You Smoked in the Last Year: Yes When Did the Patient Quit Smoking/Using Tobacco: quit about 3 months ago Review of Systems All Other Systems Reviewed And Are Negative: Yes Constitutional: Positive: Fever, Chills Skin: Positive: Negative Eyes: Positive: Negative ENT: Positive: Negative Respiratory: Positive: Negative Cardiovascular: Positive: Negative Gastrointestinal: Positive: Abdominal Pain - Lewft flank, Nausea, Other - dry heaves Genitourinary: Positive: Frequency Motor: Positive: Negative Neurovascular: Positive: Negative Musculoskeletal: Positive: Negative Neurological: Positive: Negative Psychological: Positive: Negative Physical Exam Triage Information Reviewed: Yes Appearance: Well-Appearing, No Pain Distress, Well-Nourished Vital Signs: Initial Vital Signs Temp 98.9 F 11/01/18 09:51 Pulse 82 11/01/18 09:51 Resp 16 11/01/18 09:51 BP 135/80 11/01/18 09:51 Pulse Ox 99 11/01/18 09:51 Vital Signs Reviewed: Yes Eyes: Positive: Conjunctiva Clear ENT: Positive: Hearing grossly normal. Negative: Nasal congestion, Nasal drainage, Trismus, Muffled voice, Hoarse voice Neck: Positive: Supple, Nontender, No Lymphadenopathy Respiratory: Positive: Lungs clear, Normal breath sounds, No respiratory distress, No accessory muscle use Cardiovascular: Positive: RRR, No Murmur Abdomen Description: Positive: Soft, CVA Tenderness (L). Negative: Nontender - Left upper and left lower abd tenderness Bowel Sounds: Positive: Present Musculoskeletal: Positive: ROM Intact, No Edema Neurological: Positive: Alert Psychological Exam: Normal Skin Exam: Normal Diagnostics - Laboratory Lab Results: UA- ++ protein, +++ blood, + nitrite, + leuks - Radiology No standard instances Radiology Interpretation Completed By: Radiologist Summary of Radiographic Findings: CT Left perinephrixc stranding. no stone noted. right kidney hypoplastic Re-Evaluation - Re-Evaluation First Eval Re-Evaluation Time: 11:34 Change: Unchanged Abd Pain Female Course/Dx - Course Course Of Treatment: due to hypoplastic right kidney and probable left pyelo IO have suggested patient go to the ER for blood work and a higher level of care D/W Dr. Raines To [facility] ER via pov - Differential Dx/Diagnosis Provider Diagnosis: Pyelonephritis of left kidney, Congenital hypoplasia of right kidney Discharge - Sign-Out/Discharge Documenting (check all that apply): Patient Departure All imaging exams completed and their final reports reviewed: No Studies - Discharge Plan Condition: Fair Disposition: HOME-RECOMMEND TO ED Patient Education Materials: Kidney Infection (ED) Referrals: Nai Rivera PA [Primary Care Provider] - Additional Instructions: I spoke to Dr. Raines in the ER We gave you 1000mg of rocephin IV here take CD of CT scan - Billing Disposition and Condition Condition: FAIR Disposition: Home-Recommend to ED
[2018-11-01] MEDS ORDERED: cefTRIAXone VIAL(*) 1,000 MG in NS 0.9% 50 ML* 50 ML IVPB ONE (10:21)
[2018-11-01] MEDS ORDERED: NS 0.9% 1000 ML** 1,000 ML BOLUS ONE (10:21)
[2018-11-01] MEDS ORDERED: cefTRIAXone VIAL(*) 1,000 MG VIAL ONE (10:39)
[2018-11-01 11:45] VITALS: BP 128/72
--- NOTE | 2018-11-03 09:46 | UC ---
- Progress Note Progress Note: Urine culture comes back from November 01, 2018 as positive for greater than 100, 000 Escherichia coli Patient was given IM Rocephin here in clinic and recommended to go the emergency department. Nursing to call patient to ensure the patient did go the emergency department and to ensure that the patient does note that her urine culture was positive and that she being treated appropriately. Course/Dx - Diagnoses Provider Diagnoses: Pyelonephritis of left kidney, Congenital hypoplasia of right kidney Discharge - Sign-Out/Discharge Documenting (check all that apply): Patient Departure All imaging exams completed and their final reports reviewed: No Studies - Discharge Plan Condition: Fair Disposition: HOME-RECOMMEND TO ED Patient Education Materials: Kidney Infection (ED) Referrals: Nai Rivera PA [Primary Care Provider] - Additional Instructions: I spoke to Dr. Raines in the ER We gave you 1000mg of rocephin IV here take CD of CT scan - Billing Disposition and Condition Condition: FAIR Disposition: Home-Recommend to ED
== END 2018-11-01 12:00 | disposition home health service (06) ==
LOC: UCCORT 09:36
DX: N12 Tubulo-interstitial nephritis, not specified as acute or chronic (principal); Q60.3 Renal hypoplasia, unilateral; I10 Essential (primary) hypertension; Z87.891 Personal history of nicotine dependence
CPT/HCPCS: 74176; 81003; 84702; 87077; 87086; 87186; 96361; 96365; 99212; G0463; J0696